=== PATIENT | male | born 1995 | race Caucasian/White ===

== ENCOUNTER 2017-02-27 23:44 | Emergency (ER) | payer OTHER ==
[2017-02-27 23:53] VITALS: BP 137/82; PULSE 111; TEMP 98.3; BMI 35.3
--- NOTE | 2017-02-28 00:37 | PDOC ---
Attending Attestation - Resident Resident Name: [email or web address] - HPI HPI: 02/28/17 05:08 Pt comes with CP, but walks out before CXR and after labs were drawn. - Physicial Exam PE: 02/28/17 05:09 I discussed the case with the resident, prior to pt walking out, but pt walked out before I evaluated him - Medical Decision Making 02/28/17 05:09 Pt [facility]/eloped
[2017-02-28 00:40] LABS: BASOPHIL 0.4 % (0-2.0); EOSINOPHIL 2.3 % (0-4.5); MCH 30.4 pg (25.7-33.7); MCHC 34.4 g/dl (32.0-35.9); MEAN CELL VOLUME 88.4 fl (80-96); MEAN PLT VOLUME 8.9 fl (7.5-11.1); NEUTROPHILS 52.8 % (42.8-82.8); PLATELET COUNT 225 K/MM3 (134-434); RDW 13.6 % (11.9-15.9); WHITE BLOOD COUNT 7.3 K/mm3 (4.0-10.0)
--- NOTE | 2017-02-28 01:09 | PDOC ---
History of Present Illness - General History Source: Patient Exam Limitations: No Limitations - History of Present Illness Initial Comments: 02/28/17 00:56 The patient is a 21M with a PMH of ADHD and anger issues who presents to the ED with complaints of CP. The pain started 2 hours ago and was associated with SOB and nausea. He had no diaphoresis and no radiation. He had a similar episode of CP 1 month ago and was seen at [facility]. All: none <Florin Lees - Last Filed: 02/28/17 00:56> <Luiza Martino - Last Filed: 02/28/17 05:10> - General Chief Complaint: Chest Pain Stated Complaint: CHEST PAIN Time Seen by Provider: 02/27/17 23:56 Past History - Psycho/Social/Smoking Cessation Hx Suicidal Ideation: No Smoking Status: No Smoking History: Never smoked Have you smoked in the past 12 months: No Number of Cigarettes Smoked Daily: 0 Information on smoking cessation initiated: No Hx Alcohol Use: No Drug/Substance Use Hx: No <Florin Lees - Last Filed: 02/28/17 00:56> <Luiza Martino - Last Filed: 02/28/17 05:10> - Past Medical History Allergies/Adverse Reactions: Allergies Allergy/AdvReac Type Severity Reaction Status Date / Time No Known Allergies Allergy Verified 02/27/17 23:49 Home Medications: Ambulatory Orders Aripiprazole [Abilify] 10 mg PO DAILY 11/06/12 Guanfacine HCl [Tenex] 1 mg PO DAILY 11/06/12 Methylphenidate HCl [Concerta] 54 mg PO DAILY 11/06/12 Review of Systems - Review of Systems Able to Perform ROS?: Yes Is the patient limited Macedonian proficient: No Constitutional: No: Chills, Fever Respiratory: Yes: Shortness of Breath Cardiac (ROS): Yes: Chest Pain, Other ("vibrating feeling in chest") ABD/GI: Yes: Nausea. No: Constipated, Diarrhea, Vomiting Neurological: Yes: Headache. No: Numbness, Tingling, Tremors, Weakness <lForin Lees - Last Filed: 02/28/17 00:56> *Physical Exam - Vital Signs Last Vital Signs Temp Pulse Resp BP Pulse Ox 98.3 F 111 H 20 137/82 97 02/27/17 23:49 02/27/17 23:49 02/27/17 23:49 02/27/17 23:49 02/27/17 23:49 - Physical Exam General Appearance: Yes: Appropriately Dressed, Obese. No: Mild Distress HEENT: positive: Normal Voice, Hearing Grossly Normal Respiratory/Chest: positive: Lungs Clear, Normal Breath Sounds. negative: Chest Tender, Respiratory Distress, Accessory Muscle Use Cardiovascular: positive: Regular Rhythm, Regular Rate, S1, S2. negative: Diastolic Murmur, Systolic Murmur Gastrointestinal/Abdominal: positive: Flat, Soft. negative: Tender, Protuberent , Distended, Guarding, Rebound, Tenderness Integumentary: positive: Dry, Warm. negative: Swelling Neurologic: positive: Fully Oriented, Alert, Normal Mood/Affect, Normal Response , Motor Strength 5/5 <Florin Lees - Last Filed: 02/28/17 00:56> - Vital Signs Last Vital Signs Temp Pulse Resp BP Pulse Ox 98.3 F 111 H 20 137/82 97 02/27/17 23:49 02/27/17 23:49 02/27/17 23:49 02/27/17 23:49 02/27/17 23:49 <Luiza Martino - Last Filed: 02/28/17 05:10> ED Treatment Course - LABORATORY CBC & Chemistry Diagram: 02/28/17 00:29 08 00:29 - ADDITIONAL ORDERS Additional order review: 02/28/17 00:29 RBC 5.15 MCV 88.4 MCHC 34.4 RDW 13.6 MPV 8.9 Neutrophils % 52.8 Lymphocytes % 38.1 Monocytes % 6.4 Eosinophils % 2.3 Basophils % 0.4 <Florin Lees - Last Filed: 02/28/17 00:56> - LABORATORY CBC & Chemistry Diagram: 02/28/17 00:29 02/28/17 00:29 - ADDITIONAL ORDERS Additional order review: Laboratory Results 02/28/17 02/28/17 00:29 00:29 Sodium 139 Potassium 3.7 Chloride 104 Carbon Dioxide 24 Anion Gap 11 BUN 13 Creatinine 0.9 Creat Clearance w eGFR > 60 Random Glucose 111 H Calcium 9.0 Total Bilirubin 0.5 AST 44 H ALT 69 Alkaline Phosphatase 80 Troponin I < 0.02 Total Protein 7.2 Albumin 4.1 08/12/17 00:29 RBC 5.15 MCV 88.4 MCHC 34.4 RDW 13.6 MPV 8.9 Neutrophils % 52.8 Lymphocytes % 38.1 Monocytes % 6.4 Eosinophils % 2.3 Basophils % 0.4 - RADIOLOGY Radiology Studies Ordered: Category Date Time Status CHEST PA & LAT [RAD] Stat Radiology 02/28/17 00:38 Ordered <Luiza Martino - Last Filed: 02/28/17 05:10> Medical Decision Making - Medical Decision Making 02/28/17 01:10 The patient is a 21M with no significant PMH who presented to the ED with 2 hours of acute onset CP. I will work him up to r/o ACS. He had diffuse JAQUAN on his EKG and pain when I leaned him back so I am concerned for pericarditis. Patient desired to leave AMA. I gave him the forms and he is leaving. <Florin Lees - Last Filed: 02/28/17 00:56> - Medical Decision Making 02/28/17 05:10 Cardiac enzymes and all labs normal; pt eloped. <Luiza Martino - Last Filed: 02/28/17 05:10> *DC/Admit/Observation/Transfer - Discharge Dispostion Admit: No - Attestations Physician Attestion: 02/28/17 01:11 I, Dr. Florin Lees, attest that this document has been prepared under my direction and personally reviewed by me in its entirety. I further attest, that it accurately reflects all work, treatment, procedures and medical decision -making performed by me. <Florin Lees - Last Filed: 02/28/17 00:56> <Luiza Martino - Last Filed: 02/28/17 05:10> Diagnosis at time of Disposition: Acute pericarditis Chest pain Qualifiers: Chest pain type: other chest pain Qualified Code(s): R07.89 - Other chest pain - Discharge Dispostion Disposition: AGAINST MEDICAL ADVICE Condition at time of disposition: Stable - Referrals Referrals: Darryl Carl MD [Primary Care Provider] -
[2017-02-28 01:33] LABS: ALBUMIN 4.1 g/dl (3.4-5.0); ALK PHOS 80 U/L (45-117); ANION GAP 11 (8-16); BILIRUBIN,TOTAL 0.5 mg/dL (0.2-1.0); CO2 24 mmol/L (21-32); CREATININE 0.9 mg/dL (0.7-1.3); GLUCOSE,RANDOM 111 mg/dL (74-106); SGOT/AST 44 U/L (15-37); SGPT/ALT 69 U/L (12-78); TOT PROT 7.2 g/dl (6.4-8.2)
--- NOTE | 2017-02-28 13:26 | EKG ---
Test Reason : Blood Pressure : / mmHG Vent. Rate : 101 BPM Atrial Rate : 101 BPM P-R Int : 216 ms QRS Dur : 096 ms QT Int : 328 ms P-R-T Axes : 049 057 055 degrees QTc Int : 425 ms SINUS TACHYCARDIA WITH 1ST DEGREE A-V BLOCK ST ELEVATION, CONSIDER EARLY REPOLARIZATION ABNORMAL ECG NO PREVIOUS ECGS AVAILABLE CLINICAL CORRELATION IS RECOMMENDED Confirmed by AMINTA PABLO MD ([id number]) on 02/28/2017 1:26:06 PM Referred By: Confirmed By:AMINTA PABLO MD
== END 2017-02-28 01:11 | disposition left against medical advice (07) ==
LOC: JER 23:44
DX: I30.9 Acute pericarditis, unspecified (principal); R07.89 Other chest pain
CPT/HCPCS: 36415; 80053; 84484; 85025; 93005; 93010; 99283-25